=== PATIENT | female | born 1930 | race African-American/Black ===

== ENCOUNTER → 2018-08-14 | Outpatient (CLI) | payer MEDICARE, MEDICAID, OTHER | END | disposition home or self-care (01) | LOC: RESP 11:45 | PROVIDERS: ATTEND Internal Medicine Cardiovascular Disease | DX: I25.10 Atherosclerotic heart disease of native coronary artery without angina pectoris (principal) | CPT/HCPCS: 93005 ==

== ENCOUNTER → 2018-08-15 | Outpatient (CLI) | payer MEDICARE, MEDICAID, OTHER | END | disposition home or self-care (01) | LOC: RADPV 15:31 | PROVIDERS: ATTEND Internal Medicine Cardiovascular Disease | DX: I25.10 Atherosclerotic heart disease of native coronary artery without angina pectoris (principal) | CPT/HCPCS: 93306 ==